=== PATIENT | male | born 1940 ===

== ENCOUNTER 2020-08-12 07:16 | Outpatient (CLI) | payer MEDICARE, SELFPAY | END 2020-08-12 07:17 | disposition home or self-care (01) | LOC: LAB 07:19 | PROVIDERS: PCP Electrodiagnostic Medicine; Visit Provider Specialist | DX: C44.229 Squamous cell carcinoma of skin of left ear and external auricular canal (principal) | CPT/HCPCS: 88304 ==

== ENCOUNTER → 2022-05-18 13:04 | Outpatient (BNVA) | payer MEDICARE, SELFPAY | PROVIDERS: PCP Electrodiagnostic Medicine; Visit Provider Podiatrist Foot & Ankle Surgery | DX: M20.41 Other hammer toe(s) (acquired), right foot (principal); M79.671 Pain in right foot; L84 Corns and callosities | CPT/HCPCS: 11055; 99203 ==

== ENCOUNTER → 2024-02-05 13:29 | Outpatient (BNVA) | payer MEDICARE, SELFPAY | PROVIDERS: PCP Electrodiagnostic Medicine; Visit Provider Podiatrist Foot & Ankle Surgery | DX: L60.0 Ingrowing nail (principal); M20.41 Other hammer toe(s) (acquired), right foot; M79.671 Pain in right foot; L84 Corns and callosities | CPT/HCPCS: 99213 ==